=== PATIENT | male | born 1955 | race Caucasian/White ===

== ENCOUNTER 2016-06-22 08:00 | Outpatient (CLI) | payer MEDICARE ==
[2016-06-22 14:37] LABS: BASOPHILS % (AUTO) 0.4 %; EOSINOPHILS # (AUTO) 0.1 10^3/uL (0.0-0.7); EOSINOPHILS % (AUTO) 1.8 %; HCT - HEMATOCRIT 47.8 % (42.0-52.0); HGB - HEMOGLOBIN 16.3 g/dL (14.0-18.0); LYMPHOCYTES # (AUTO) 2.3 10^3/uL (1.5-3.5); LYMPHOCYTES % (AUTO) 39.2 %; MEAN CORPUSCULAR HEMOGLOBIN 31.1 pg (27.0-31.0); MEAN CORPUSCULAR HGB CONC 34.2 g/dL (32.0-36.0); MEAN CORPUSCULAR VOLUME 90.9 fL (80.0-94.0); MEAN PLATELET VOLUME 8.5 fL (7.4-11.4); MONOCYTES # (AUTO) 0.4 10^3/uL (0.0-1.0); NEUTROPHILS % (AUTO) 51.6 %; RED BLOOD COUNT 5.26 10^6/uL (4.70-6.10); RED CELL DISTRIBUTION WIDTH 13.3 % (12.0-15.0); UNCORRECTED WHITE BLOOD COUNT 5.8 x10^3/uL; WHITE BLOOD COUNT 5.8 x10^3/uL (4.8-10.8)
[2016-06-22 14:49] LABS: ALBUMIN/GLOBULIN RATIO 1.8 (1.0-2.2); BUN - BLOOD UREA NITROGEN 8 mg/dL (6-20); CALCIUM 9.4 mg/dL (8.5-10.3); CARBON DIOXIDE - CO2 29 mmol/L (21-32); CHLORIDE 101 mmol/L (101-111); CHOL/HDL RATIO 4.3 (<5.0); CHOLESTEROL 301 mg/dL; CREATININE 0.7 mg/dL (0.6-1.2); GFR - MDRD 114 (>89); GLUCOSE 94 mg/dL (70-100); HDL CHOLESTEROL 70 mg/dL; LDL/HDL RATIO 2.9 (<3.6); POTASSIUM 3.7 mmol/L (3.5-5.0); SODIUM 139 mmol/L (135-145); TOTAL PROTEIN 7.2 g/dL (6.7-8.2); TRIGLYCERIDES 153 mg/dL; VLDL CHOLESTEROL 31 mg/dL
[2016-06-26 18:16] LABS: TEST RESULT REPORT (())
== END 2016-06-22 08:01 | disposition home or self-care (01) ==
LOC: LAB.R 08:00
PROVIDERS: ATTEND Physician Assistant Medical
DX: L08.89 Other specified local infections of the skin and subcutaneous tissue (principal); R53.83 Other fatigue; E78.2 Mixed hyperlipidemia; Z12.5 Encounter for screening for malignant neoplasm of prostate; I10 Essential (primary) hypertension; Z79.899 Other long term (current) drug therapy
CPT/HCPCS: 80053; 80061; 81599; 84443; 85025; 86618; G0103; 84153

== ENCOUNTER 2017-03-12 03:45 | Emergency (ER) | payer MEDICARE ==
[2017-03-12] MEDS ORDERED: KETOROLAC 60 MG/2 ML VIAL IVP STA (03:49)
[2017-03-12] MEDS ORDERED: SODIUM CHLORIDE 0.9% 1,000 ML IV ONE ×2 (03:49→05:34)
[2017-03-12] MEDS ORDERED: LIDOCAINE-MPF 2% 10 ML in SODIUM CHLORIDE 0.9% 50 ML IV STA (04:26)
[2017-03-12] MEDS ORDERED: LIDOCAINE-MPF 2% 0 ML in SODIUM CHLORIDE 0.9% 50 ML IV STA ×2 (04:26→04:48)
--- NOTE | 2017-03-12 04:26 | CT Report ---
EXAM: CT ABDOMEN AND PELVIS (CT KUB) EXAM DATE: 03/12/2017 04:10 AM. CLINICAL HISTORY: Right flank pain. History of stones. COMPARISONS: 05/30/2014. TECHNIQUE: Routine axial helical CT imaging was performed through the abdomen and pelvis without IV c ontrast. Reconstructions: Coronal and sagittal. In accordance with CT protocol optimization, one or more of the following dose reduction techniques w ere utilized for this exam: automated exposure control, adjustment of mA and/or KV based on patient s ize, or use of iterative reconstructive technique. FINDINGS: Lung Bases: Bibasilar atelectasis. Heart size upper normal. Coronary artery calcifications. Right Kidney/Ureter: No stones are seen in the kidney. Moderately obstructing stone in the ureter jus t beyond the level of the iliac crest measuring 6 x 5 mm, series 3 image 99. Left Kidney/Ureter: No stones, hydronephrosis, or hydroureter. No perinephric fat stranding. Other Solid Organs: Noncontrast images of the solid organs are grossly unremarkable. Gallbladder/Bile Ducts: Unremarkable. Peritoneal Cavity: No free fluid, free air or emy adenopathy. Bowel is grossly unremarkable. Very l kirsten normal retrocecal appendix. Left inguinal hernia containing fat. Pelvic Organs: Large amount of streak artifact. Grossly unremarkable. Vasculature: Mild atherosclerosis. No aortic aneurysm. Other: Bilateral hip prostheses. Degenerative changes in the spine. IMPRESSION: 1. Moderately obstructing 6 x 5 mm stone in the right ureter just beyond the level of the iliac crest . 2. No other urolithiasis seen. [facility] Referring Provider Line: [phone] SITE ID: [id number]
--- NOTE | 2017-03-12 04:26 | CT Preliminary Report ---
Exam: CT ABDOMEN/PELVIS W/O IMPRESSION: 1. Moderately obstructing 6 x 5 mm stone in the right ureter just beyond the level of the iliac crest . 2. No other urolithiasis seen. [facility] SITE ID: [id number]
[2017-03-12] MEDS ORDERED: LIDOCAINE 2% 10 ML MDV ONE (04:59)
[2017-03-12] MEDS ORDERED: LIDOCAINE-MPF 2% 5 ML VIAL ONE (05:00)
[2017-03-12 05:53] LABS: BILIRUBIN,URINE NEGATIVE (NEGATIVE); GLUCOSE, URINE (UA) NEGATIVE (NEGATIVE); KETONES,URINE (UA) NEGATIVE (NEGATIVE); LEUKOCYTE ESTERASE, URINE NEGATIVE (NEGATIVE); NITRITE,URINE NEGATIVE (NEGATIVE); OCCULT BLOOD,URINE LARGE (NEGATIVE); PROTEIN,URINE NEGATIVE (NEGATIVE); UROBILINOGEN,URINE 0.2 (NORMAL) E.U./dL (NORMAL)
--- NOTE | 2017-03-12 05:57 | ED Physician Documentation ---
PD HPI MALE - Stated complaint Stated Complaint: RT FLANK PAIN - Chief complaint Chief Complaint: Back Pain - History obtained from History obtained from: Patient - History of Present Illness Timing - onset: Today Timing - details: Abrupt onset, Still present Similar symptoms before: Work up / diagnostics, Treatment Recently seen: Not recently seen - Additional information Additional information: Patient is a 61 year old male with a history of kidney stones who is presenting to the emergency department for right sided flank pain with radiation to his groin. Patient states that the pain woke him up from sleep this morning. Patient complains of nausea with the pain. Review of Systems Constitutional: denies: Fever, Chills Eyes: reports: Reviewed and negative Ears: reports: Reviewed and negative Nose: reports: Reviewed and negative Throat: reports: Reviewed and negative Cardiac: reports: Reviewed and negative Respiratory: denies: Cough, Wheezing GI: reports: Abdominal Pain, Nausea. denies: Vomiting, Constipation, Diarrhea : reports: Hesitancy. denies: Hematuria Musculoskeletal: reports: Back pain Neurologic: reports: Reviewed and negative Psychiatric: reports: Reviewed and negative Immunocompromised: denies: Immunocompromised PD PAST MEDICAL HISTORY - Past Medical History Past Medical History: Yes Cardiovascular: Hypertension, High cholesterol Respiratory: None, Sleep apnea Neuro: None Endocrine/Autoimmune: None GI: None : Benign prostate hypertrophy, Kidney stones HEENT: None Psych: None Musculoskeletal: Other Derm: None - Past Surgical History Past Surgical History: Yes Ortho: Hip replacement, ACL reconstruction, Other - Present Medications Home Medications: Ambulatory Orders Medication Instructions Recorded Confirmed Lisinopril 30 mg PO DAILY 10/20/12 07/06/14 Ibuprofen 800 mg PO Q8HR PRN 05/26/14 07/06/14 Tamsulosin [Flomax] 0.4 mg PO DAILY 07/02/14 07/06/14 Ketorolac [Toradol] 10 mg PO Q6H #10 tablet 03/12/17 Ondansetron Odt [Zofran] 4 mg TL Q6H PRN #14 tablet 03/12/17 Oxycodone HCl/Acetaminophen 1 - 2 each PO Q6H PRN #10 tablet 03/12/17 [Percocet 5-325 mg Tablet] Tamsulosin [Flomax] 0.4 mg PO DAILY #14 capsule 03/12/17 - Allergies Allergies/Adverse Reactions: Allergies Allergy/AdvReac Type Severity Reaction Status Date / Time No Known Drug Allergies Allergy Verified 06/29/13 07:58 - Social History Does the pt smoke?: No Smoking Status: Never smoker Does the pt drink ETOH?: No Does the pt have substance abuse?: No - Immunizations Immunizations are current?: Yes - POLST Patient has POLST: No PD ED PE NORMAL - Vitals Vital signs reviewed: Yes - General General: Alert and oriented X 3, Well developed/nourished - HEENT HEENT: Atraumatic, PERRL - Neck Neck: Supple, no meningeal sign - Cardiac Cardiac: RRR, No murmur - Respiratory Respiratory: No respiratory distress - Abdomen Abdomen: Soft - Derm Derm: Normal color, No rash - Extremities Extremities: No deformity, Normal ROM s pain, No calf tenderness / cord - Neuro Neuro: Alert and oriented X 3, No motor deficit, No sensory deficit, Normal speech - Psych Psych: Normal mood PD ED PE EXPANDED - General General: Alert, In Pain - HEENT HEENT: Dry mucous membranes Results - Vitals Vitals: Vital Signs - 24 hr 03/12/17 03/12/17 03/12/17 03:52 05:07 05:12 Temperature 36.0 C L Heart Rate 70 82 79 Respiratory 18 22 19 Rate Blood Pressure 157/81 H 184/91 H O2 Saturation 95 96 98 03/12/17 03/12/17 03/12/17 05:19 05:50 06:03 Temperature Heart Rate 83 79 76 Respiratory 18 19 18 Rate Blood Pressure 152/96 H 156/86 H 166/93 H O2 Saturation 96 96 95 Oxygen O2 Source Room air - Labs Labs: Laboratory Tests 03/12/17 05:45 Urine Color YELLOW Urine Clarity SL. CLOUDY Urine pH 7.0 Ur Specific [place] 1.020 Urine Protein NEGATIVE Urine Glucose (UA) NEGATIVE Urine Ketones NEGATIVE Urine Occult Blood LARGE H Urine Nitrite NEGATIVE Urine Bilirubin NEGATIVE Urine Urobilinogen 0.2 (NORMAL) Ur Leukocyte Esterase NEGATIVE Urine RBC TNTC H Urine WBC 4-5 Ur Squamous Epith Cells RARE Squamous Urine Bacteria Rare Ur Microscopic Review INDICATED Urine Culture Comments NOT INDICATED - Rads (name of study) ct abd pelvis Radiology: Final report received (mm by 6mm renal calculi with mild hydro) PD MEDICAL DECISION MAKING - ED course Complexity details: reviewed old records, reviewed results, re-evaluated patient , considered differential, d/w patient ED course: Patient was seen and examined at bedside. patient was treated with a fluid bolus, toradol and zofran. Imaging was ordered. When patient returned from imaging he was re-evaluated and was treated with lidocaine 20mg IV. Patient responded well to the therapy. patient was treated with a second fluid bolus. Urine was collected and showed no sign of infection. patient was given strict discharge and follow up instructions and was stable for discharge with outpatient follow up. Departure - Departure Disposition: 01 Home, Self Care Clinical Impression: Renal colic Condition: Good Instructions: ED Stone Renal W Colic Follow-Up: [facility] [Provider Group] - Tomorrow Prescriptions: Ketorolac [Toradol] 10 mg PO Q6H #10 tablet Ondansetron Odt [Zofran] 4 mg TL Q6H PRN #14 tablet PRN Reason: Nausea / Vomiting Oxycodone HCl/Acetaminophen [Percocet 5-325 mg Tablet] 1 - 2 each PO Q6H PRN # 10 tablet PRN Reason: pain Tamsulosin [Flomax] 0.4 mg PO DAILY #14 capsule Comments: Your symptoms today are being caused by a kidney stone. the stone should pass on its own but you should call [facility] to schedule a follow up appointment. You should make sure you stay well hydrated and take tylenol or ketorolac as needed for pain and percocet for breakthrough pain. You should return to the emergency department for fevers, uncontrolled vomiting, new worsening or uncontrollable symptoms Forms: Activity restrictions
[2017-03-12 06:02] LABS: BACTERIA,URINE Rare /HPF (None Seen); CLARITY,URINE SL. CLOUDY (CLEAR); RBC,URINE TNTC /HPF (0-5); SQUAMOUS EPITHELIAL CELL,UR RARE Squamous (<= Few)
[2017-03-12 06:04] VITALS: BP 166/93
[2017-03-12] MEDS ORDERED: oxyCODONE/ACET 5/325 Prepack 4 PO STA (06:19)
== END 2017-03-12 06:34 | disposition home or self-care (01) ==
LOC: ED 03:45
DX: N13.2 Hydronephrosis with renal and ureteral calculous obstruction (principal); I10 Essential (primary) hypertension; E78.5 Hyperlipidemia, unspecified; N40.0 Benign prostatic hyperplasia without lower urinary tract symptoms
CPT/HCPCS: 74176; 81001; 81003; 87086; 96361; 96374; 99284

== ENCOUNTER 2017-10-08 10:25 | Outpatient (CLI) | payer MEDICARE ==
[2017-10-08 15:10] LABS: BILIRUBIN,URINE NEGATIVE (NEGATIVE); GLUCOSE, URINE (UA) NEGATIVE (NEGATIVE); KETONES,URINE (UA) NEGATIVE (NEGATIVE); LEUKOCYTE ESTERASE, URINE NEGATIVE (NEGATIVE); NITRITE,URINE NEGATIVE (NEGATIVE); OCCULT BLOOD,URINE SMALL (NEGATIVE); PROTEIN,URINE NEGATIVE (NEGATIVE); UROBILINOGEN,URINE 0.2 (NORMAL) E.U./dL (NORMAL)
[2017-10-08 16:00] LABS: CLARITY,URINE CLEAR (CLEAR)
[2017-10-08 16:01] LABS: BACTERIA,URINE None Seen /HPF (None Seen); CRYSTALS,URINE 0-2 Calcium Oxalate /LPF; RBC,URINE None Seen /HPF (0-5); SQUAMOUS EPITHELIAL CELL,UR RARE Squamous (<= Few)
== END 2017-10-08 10:26 ==
LOC: LAB.R 10:25
PROVIDERS: ATTEND Physician Assistant Medical
DX: R31.9 Hematuria, unspecified (principal)
CPT/HCPCS: 81001; 87086

== ENCOUNTER 2018-12-04 08:25 | Outpatient (CLI) | payer MEDICARE ==
[2018-12-04 09:02] LABS: BASOPHILS % (AUTO) 0.5 %; EOSINOPHILS # (AUTO) 0.1 10^3/uL (0.0-0.7); EOSINOPHILS % (AUTO) 1.5 %; HGB - HEMOGLOBIN 16.1 g/dL (14.0-18.0); LYMPHOCYTES # (AUTO) 2.4 10^3/uL (1.5-3.5); LYMPHOCYTES % (AUTO) 36.3 %; MEAN CORPUSCULAR HEMOGLOBIN 32.5 pg (27.0-31.0); MEAN CORPUSCULAR HGB CONC 35.1 g/dL (32.0-36.0); MEAN CORPUSCULAR VOLUME 92.5 fL (80.0-94.0); MEAN PLATELET VOLUME 9.7 fL (7.4-11.4); MONOCYTES # (AUTO) 0.6 10^3/uL (0.0-1.0); NEUTROPHILS # (AUTO) 3.4 10^3/uL (1.5-6.6); NEUTROPHILS % (AUTO) 51.6 %; PLT - PLATELET COUNT 208 10^3/uL (130-450); RED BLOOD COUNT 4.96 10^6/uL (4.70-6.10); RED CELL DISTRIBUTION WIDTH 12.2 % (12.0-15.0); WHITE BLOOD COUNT 6.6 x10^3/uL (4.8-10.8)
[2018-12-04 09:09] LABS: ALBUMIN 4.3 g/dL (3.2-5.5); ALBUMIN/GLOBULIN RATIO 1.7 (1.0-2.2); ALKALINE PHOSPHATASE 48 IU/L (42-121); ALT ALANINE AMINOTRANSFERASE 26 IU/L (10-60); AST ASPARTATE AMINOTRANSFERASE 22 IU/L (10-42); BILIRUBIN,TOTAL 1.5 mg/dL (0.2-1.0); BUN - BLOOD UREA NITROGEN 17 mg/dL (6-20); CALCIUM 9.3 mg/dL (8.5-10.3); CARBON DIOXIDE - CO2 27 mmol/L (21-32); CHLORIDE 103 mmol/L (101-111); CHOL/HDL RATIO 3.9 (<5.0); CHOLESTEROL 251 mg/dL; CREATININE 0.8 mg/dL (0.6-1.2); GFR - MDRD 97 (>89); GLUCOSE 108 mg/dL (70-100); HDL CHOLESTEROL 65 mg/dL; LDL CHOLESTEROL,CALCULATED 167 mg/dL; LDL/HDL RATIO 2.6 (<3.6); SODIUM 138 mmol/L (135-145); TOTAL PROTEIN 6.9 g/dL (6.7-8.2); VLDL CHOLESTEROL 19 mg/dL
== END 2018-12-04 08:26 | disposition home or self-care (01) ==
LOC: LAB 08:25
PROVIDERS: ATTEND Nurse Practitioner
DX: Z00.00 Encounter for general adult medical examination without abnormal findings (principal); N23 Unspecified renal colic; E78.2 Mixed hyperlipidemia; I10 Essential (primary) hypertension
CPT/HCPCS: 36415; 80053; 80061; 83721; 84443; 85025

== ENCOUNTER 2019-08-24 10:50 | Outpatient (CLI) | payer MEDICARE | END 2019-08-24 23:59 | disposition home or self-care (01) | LOC: COV 10:50 | PROVIDERS: ATTEND Family Medicine | DX: R06.02 Shortness of breath (principal); M79.10 Myalgia, unspecified site; R53.83 Other fatigue; Z20.828 Contact with and (suspected) exposure to other viral communicable diseases ==

== ENCOUNTER 2019-12-18 12:20 | Outpatient (CLI) | payer MEDICARE ==
--- NOTE | 2019-12-18 15:41 | XRAY Report ---
PROCEDURE: Hips 2V BILAT INDICATIONS: HX OF HIP REPLACEMENT, BILATERAL TECHNIQUE: 2 views of the hip were acquired. COMPARISON: CT abdomen pelvis 05/26/2014 FINDINGS: Bones: No fractures or dislocations. No suspicious bony lesions. The visualized pelvic ring appear s intact. Bilateral hip arthroplasties are present. Hardware is intact without evidence of hardware fracture or periprosthetic loosening. Degenerative changes are present within the lower lumbar spine. Soft tissues: No suspicious soft tissue calcifications or masses. IMPRESSION: Bilateral hip arthroplasties as above. Reviewed by: Karena Colbert MD on 12/18/2019 3:39 PM PST Approved by: Karena Colbert MD on 12/18/2019 3:39 PM PST Station ID: [id number]
== END 2019-12-18 12:21 | disposition home or self-care (01) ==
LOC: DI 12:20
PROVIDERS: ATTEND Internal Medicine
DX: M25.551 Pain in right hip (principal); M25.552 Pain in left hip; Z96.643 Presence of artificial hip joint, bilateral
CPT/HCPCS: 73521

== ENCOUNTER 2019-12-29 16:48 | Outpatient (CLI) | payer MEDICARE ==
--- NOTE | 2019-12-29 18:06 | MRI Report ---
PROCEDURE: Lumbar Spine W/O INDICATIONS: LUMBAR BACK PAIN W/RADICULOPATHY, HX HIP REPLAC TECHNIQUE: Noncontrast sagittal T1 spin echo and T2 fast echo, sagittal STIR, axial T1 and T2 fast spin echo thr ough the lumbar spine. In cases with scoliosis, additional coronal T2 fast spin echo may be performe d. COMPARISON: None. FINDINGS: Image quality: Motion artifact is noted. Alignment and Curvature: There is normal bony alignment. Bone Marrow: Marrow is of normal overall signal. Scattered foci of T1-weighted hyperintensity and T 2-weighted hyperintensity are seen, without increased STIR signal. These foci are attributed to benig n vertebral body hemangiomas. No acute vertebral body compression fractures. Spinal Cord: Conus medullaris terminates at the L1 level. Visualized cord demonstrates normal signa l and size. Paraspinous Soft Tissues: No paravertebral masses. T12-L1: Normal in appearance. L1-L2: Mild loss of disc height and disc signal are seen. Bridging anterior osteophytes are see n. This level is not included within the axial images. However, there is believed to be moderate face t hypertrophy. There is mild to moderate bilateral neuroforaminal narrowing seen. Mild central canal narrowing is seen. L2-L3: Moderate loss of disc height and signal are seen. Moderate to prominent disc bulge is seen. At least moderate facet hypertrophy can be seen. There is mild to moderate right-sided and moderate left-sided neuroforaminal narrowing seen. Moderate to severe central canal narrowing is seen, as on s eries 701 image 28. L3-L4: Moderate loss of disc height and signal are seen. Moderate to prominent disc bulge is seen a t this level. There is a central disc extrusion seen. Bridging anterior osteophytes are seen. At [address] st moderate facet hypertrophy can be seen. There is moderate left-sided and moderate to severe right- sided neuroforaminal narrowing seen. Compression is seen upon the exiting nerve roots. Severe centra l canal narrowing is seen, as on series 701 image 22. L4-L5: Moderate loss of disc height and signal are seen. Moderate disc bulge is seen. Bridging ante rior osteophytes are seen. Mild facet hypertrophy is seen. There is at least moderate right-sided n euroforaminal narrowing seen, with a degree of compression upon the exiting right L4 nerve root. Mode rate left-sided neuroforaminal narrowing can be seen. Mild central canal narrowing is seen. L5-S1: The disc height is well-preserved. There is loss of disc signal seen. Mild to moderate disc bulge is seen. Bridging anterior osteophytes are seen. Moderate to prominent facet hypertrophy is see n. Moderate to severe bilateral neuroforaminal narrowing can be seen. Compression is seen upon the ex iting nerve roots. Mild central canal narrowing is seen. IMPRESSION: At L3-L4, there is a central disc extrusion, with severe central canal narrowing. There is moderate left-sided and moderate to severe right-sided neuroforaminal narrowing at this level. Exi ting nerve root compression can be seen. At L5-S1, moderate to severe bilateral neuroforaminal narrowing can be seen, with associated exiting nerve root compression. Milder degenerative changes are seen elsewhere. Reviewed by: Raghav Ceja MD on 12/29/2019 5:05 PM [place] Approved by: Raghav Ceja MD on 12/29/2019 5:05 PM [facility] Station ID: [id number]
== END 2019-12-29 16:49 | disposition home or self-care (01) ==
LOC: DI 16:48
PROVIDERS: ATTEND Internal Medicine
DX: M51.36 Other intervertebral disc degeneration, lumbar region (principal); M48.061 Spinal stenosis, lumbar region without neurogenic claudication; M47.816 Spondylosis without myelopathy or radiculopathy, lumbar region; M51.26 Other intervertebral disc displacement, lumbar region; M51.37 Other intervertebral disc degeneration, lumbosacral region; M48.07 Spinal stenosis, lumbosacral region
CPT/HCPCS: 72148

== ENCOUNTER 2020-10-31 18:50 | Emergency (ER) | payer MEDICARE ==
--- NOTE | 2020-10-31 19:25 | XRAY Report ---
PROCEDURE: Chest 2 View X-Ray INDICATIONS: cough TECHNIQUE: 2 view(s) of the chest. COMPARISON: Chest x-ray 08/26/2014 FINDINGS: Surgical changes and devices: None. Lungs and pleura: No pleural effusions or pneumothorax. Lungs are clear. Mediastinum: Mediastinal contours are normal. Heart size is mildly prominent. Bones and chest wall: No suspicious bony abnormalities. Soft tissues appear unremarkable. IMPRESSION: No acute pulmonary process. Reviewed by: Karena Colbert MD on 10/31/2020 7:24 PM PDT Approved by: Karena Colbert MD on 10/31/2020 7:24 PM PDT Station ID: [id number]
[2020-10-31] MEDS ORDERED: AZITHROMYCIN 250 MG TABLET PO STA (21:41)
--- NOTE | 2020-10-31 21:44 | ED Physician Documentation ---
History of Present Illness - Stated complaint Stated Complaint: COUGH/SOA - Chief complaint Chief Complaint: Resp - History obtained from History obtained from: Patient - History of Present Illness Timing: How many days ago (3) Pain level max: 0 Pain level now: 0 - Additonal information Additional information: Patient is a 65-year-old male who presents to the emergency department with coughing for the past 3 days. States has a history of recurrent pneumonia after several lung infections earlier in his life. No fevers. No chills. Cough is productive of yellow sputum. Nothing makes it better or worse. Review of Systems Constitutional: denies: Fever, Chills Nose: denies: Rhinorrhea / runny nose, Congestion Cardiac: denies: Chest pain / pressure Respiratory: reports: Cough. denies: Hemoptysis, Wheezing GI: denies: Nausea, Vomiting Skin: denies: Rash Neurologic: denies: Headache PD PAST MEDICAL HISTORY - Past Medical History Past Medical History: Yes Cardiovascular: Hypertension, High cholesterol Respiratory: None, Sleep apnea Endocrine/Autoimmune: None GI: None : Benign prostate hypertrophy, Kidney stones HEENT: None Psych: None Musculoskeletal: Other Derm: None - Past Surgical History Past Surgical History: Yes Ortho: Hip replacement, ACL reconstruction, Other - Present Medications Home Medications: Ambulatory Orders Medication Instructions Recorded Confirmed Ibuprofen 800 mg PO Q8HR PRN 05/26/14 07/06/14 Azithromycin [Zithromax] 250 mg PO DAILY #4 tablet 10/31/20 Losartan Potassium [Cozaar] 100 mg PO DAILY 10/31/20 10/31/20 hydroCHLOROthiazide [Hydrodiuril] 25 mg PO DAILY 10/31/20 10/31/20 - Allergies Allergies/Adverse Reactions: Allergies Allergy/AdvReac Type Severity Reaction Status Date / Time No Known Drug Allergies Allergy Verified 06/29/13 07:58 - Social History Does the pt smoke?: No Smoking Status: Never smoker Does the pt drink ETOH?: No Does the pt have substance abuse?: No - Immunizations Immunizations are current?: Yes - POLST Patient has POLST: No PD ED PE NORMAL - Vitals Vital signs reviewed: Yes - General General: Alert and oriented X 3, No acute distress - HEENT HEENT: Moist mucous membranes - Neck Neck: Supple, no meningeal sign - Cardiac Cardiac: RRR, Strong equal pulses - Respiratory Respiratory: No respiratory distress, Clear bilaterally - Abdomen Abdomen: Soft, Non tender, Non distended - Derm Derm: Warm and dry - Extremities Extremities: No edema - Neuro Neuro: Alert and oriented X 3 Results - Vitals Vitals: Oxygen O2 Source Room air - Labs Labs: Laboratory Tests 10/31/20 20:31 Coronavirus (PCR) NEGATIVE - Rads (name of study) cxr Radiology: Final report received, EMP read contemporaneously, See rad report (No acute abnormality) PD MEDICAL DECISION MAKING - ED course Complexity details: considered differential, d/w patient ED course: 65-year-old male presents to the emergency department with concerns for possible pneumonia. Has a history of recurrent lung infections and states that his doctor recommends he be treated early with antibiotics. Even though the x-ray is clear today, we will place him on antibiotics given his history and have him follow-up with his doctor for further care. Patient counseled regarding signs and symptoms for which I believe and urgent re-evaluation would be necessary. Patient with good understanding of and agreement to plan and is comfortable going home at this time This document was made in part using voice recognition software. While efforts are made to proofread this document, sound alike and grammatical errors may occur. Departure - Departure Disposition: 01 Home, Self Care Clinical Impression: Pneumonia Qualifiers: Pneumonia type: due to unspecified organism Laterality: unspecified laterality Lung location: unspecified part of lung Qualified Code(s): J18.9 - Pneumonia, unspecified organism Condition: Good Instructions: ED Pneumonia Adult Follow-Up: Jesus Rabago MD [Primary Care Provider] - Within 1 week Prescriptions: Azithromycin [Zithromax] 250 mg PO DAILY #4 tablet Comments: Your prescription was sent to [facility] in [place]. Take all antibiotics until gone. Return if you worsen. You have a Covid test pending. You need to self quarantine until the result is done and negative. The results should be done in 24-48 hours. We will call with a positive result, the fastest way to get a negative result for confirmation though is to go to the hospital website at [email or web address], click on the my [facility] tab and sign up for the patient portal. If any of your friends and/or family need to be tested, they can call the hospital at [phone] for an appointment to have their Covid test. Discharge Date/Time: 10/31/20 21:50
[2020-10-31 21:52] VITALS: BP 155/72
== END 2020-10-31 21:50 | disposition home or self-care (01) ==
LOC: ED 18:50
DX: J18.9 Pneumonia, unspecified organism (principal); I10 Essential (primary) hypertension
CPT/HCPCS: 71046; 99283; 99284; A9270; U0004

== ENCOUNTER 2021-01-02 08:19 | Outpatient (CLI) | payer MEDICARE ==
[2021-01-02 08:36] LABS: BASOPHILS % (AUTO) 0.4 %; EOSINOPHILS # (AUTO) 0.1 10^3/uL (0.0-0.7); EOSINOPHILS % (AUTO) 1.1 %; HCT - HEMATOCRIT 47.4 % (42.0-52.0); HGB - HEMOGLOBIN 15.8 g/dL (14.0-18.0); LYMPHOCYTES # (AUTO) 2.9 10^3/uL (1.5-3.5); LYMPHOCYTES % (AUTO) 39.4 %; MEAN CORPUSCULAR HEMOGLOBIN 31.6 pg (27.0-31.0); MEAN CORPUSCULAR HGB CONC 33.3 g/dL (32.0-36.0); MEAN CORPUSCULAR VOLUME 94.8 fL (80.0-94.0); MEAN PLATELET VOLUME 9.4 fL (7.4-11.4); MONOCYTES # (AUTO) 0.7 10^3/uL (0.0-1.0); MONOCYTES % (AUTO) 8.7 %; NEUTROPHILS # (AUTO) 3.7 10^3/uL (1.5-6.6); NEUTROPHILS % (AUTO) 49.7 %; PLT - PLATELET COUNT 205 10^3/uL (130-450); RED CELL DISTRIBUTION WIDTH 12.6 % (12.0-15.0); WHITE BLOOD COUNT 7.5 x10^3/uL (4.8-10.8)
[2021-01-02 08:49] LABS: CREATININE,URINE 336.4 mg/dL; MICROALBUM/CREATININE RATIO,UR 3.6 ug/mg (<30.0); MICROALBUMIN,URINE 1.2 mg/dL (0-300.0)
[2021-01-02 08:55] LABS: ALBUMIN 4.2 g/dL (3.2-5.5); ALBUMIN/GLOBULIN RATIO 1.7 (1.0-2.2); ALKALINE PHOSPHATASE 50 IU/L (42-121); ALT ALANINE AMINOTRANSFERASE 34 IU/L (10-60); AST ASPARTATE AMINOTRANSFERASE 26 IU/L (10-42); BILIRUBIN,TOTAL 0.8 mg/dL (0.2-1.0); BUN - BLOOD UREA NITROGEN 13 mg/dL (6-20); CALCIUM 9.2 mg/dL (8.5-10.3); CARBON DIOXIDE - CO2 31 mmol/L (21-32); CHLORIDE 98 mmol/L (101-111); CHOL/HDL RATIO 3.2 (<5.0); CHOLESTEROL 267 mg/dL; CREATININE 0.9 mg/dL (0.6-1.2); GFR - MDRD 84 (>89); GLUCOSE 100 mg/dL (70-100); HDL CHOLESTEROL 83 mg/dL; LDL CHOLESTEROL,CALCULATED 168 mg/dL; SODIUM 138 mmol/L (135-145); TOTAL PROTEIN 6.7 g/dL (6.7-8.2); TRIGLYCERIDES 82 mg/dL; VLDL CHOLESTEROL 16 mg/dL
[2021-01-02 09:05] LABS: THYROID STIMULATING HORMONE 0.82 uIU/mL (0.34-5.60)
[2021-01-02 10:42] LABS: ESTIMATED AVERAGE GLUCOSE 103 mg/dL (70-100); HEMOGLOBIN A1c% 5.2 % (4.27-6.07)
== END 2021-01-02 08:20 | disposition home or self-care (01) ==
LOC: LAB 08:19
PROVIDERS: ATTEND Internal Medicine
DX: I10 Essential (primary) hypertension (principal); E78.2 Mixed hyperlipidemia; R73.01 Impaired fasting glucose; R97.20 Elevated prostate specific antigen [PSA]
CPT/HCPCS: 36415; 80053; 80061; 82043; 82570; 83036; 83721; 84153; 84443; 85025

== ENCOUNTER 2022-01-11 08:40 | Day surgery (SDC) | payer MEDICARE ==
[~2022-01-11 08:40] MED LIST: CYCLOPENTOLATE 1% OPHTH DROPS 2 ML ONE; KETOROLAC 0.45% OPHTH DROPS ONE; PHENYLEPHRINE 2.5% OPHTH 2 ML DROPS ONE; PROPARACAINE 0.5% OPHTH DROPS 15 ML ONE
[2022-01-11] MEDS ORDERED: LACTATED RINGERS 1,000 ML IV ONE (09:23)
[2022-01-11] MEDS ORDERED: TRIAMCIN/MOXIFLOX OPHTHALMIC 0.6 ML VIAL IO ONE ×2 (11:23→11:43)
[2022-01-11] MEDS ORDERED: TIMOLOL 0.5% OPHTH DROPS ONE (11:24)
[2022-01-11] MEDS ORDERED: VANCOMYCIN OPHTH (TOPICAL) 10 MG/ML SYRINGE ONE (11:24)
[2022-01-11] MEDS ORDERED: BRIMONIDINE 0.2% OPHTH DROPS 5 ML ONE (11:24)
[2022-01-11] MEDS ORDERED: BSS/LIDOCAINE/EPINEPHRINE 1 ML VIAL ONE (11:24)
[2022-01-11] MEDS ORDERED: EPINEPHrine 1 MG/ML AMP ONE (11:24)
--- NOTE | 2022-01-11 11:24 | ANESTHESIA ---
Pre-Anesthesia VS, & Labs - Diagnosis R senile combined cataract - Procedure R extraction cataract w/IOL Vital Signs: Temp Pulse Resp BP Pulse Ox O2 Flow Rate 36.3 C L 85 14 154/76 H 98 01/11/22 09:33 01/11/22 09:33 01/11/22 09:33 01/11/22 09:33 01/11/22 09:33 Height: 5 ft 9 in Weight (kg): 110 kg Body Mass Index: 35.8 BMI Classification: Obese - NPO >8 hours - Lab Results Lab results reviewed: Yes Home Medications and Allergies Home Medications: Ambulatory Orders Amitriptyline [Elavil] 10 mg PO HS 01/10/22 Simvastatin [Zocor] 20 mg PO DAILY 01/10/22 Losartan Potassium [Cozaar] 100 mg PO DAILY 10/31/20 hydroCHLOROthiazide [Hydrodiuril] 25 mg PO DAILY 10/31/20 Amitriptyline [Elavil] 10 mg PO HS 01/10/22 Simvastatin [Zocor] 20 mg PO DAILY 01/10/22 Allergies/Adverse Reactions: Allergies Allergy/AdvReac Type Severity Reaction Status Date / Time No Known Drug Allergies Allergy Verified 01/11/22 09:43 Anes History & Medical History - Anesthetic History Anesthesia Complications: reports: No previous complications Family history of Anesthesia Complications: Denies Family history of Malignant Hyperthermia: Denies - Medical History Cardiovascular: reports: Hypertension, High cholesterol Pulmonary: reports: None, Sleep apnea Gastrointestinal: reports: None Urinary: reports: Benign prostate hypertrophy, Kidney stones Musculoskeletal: reports: Other Endocrine/Autoimmune: reports: None Blood Disorders: reports: None Skin: reports: None Smoking Status: Never smoker - Surgical History Orthopedic: reports: Hip replacement, ACL reconstruction, Other Exam General: Alert, Oriented x3, Cooperative Dental: WNL Plan Anesthesia Type: MAC Consent for Procedure(s) Verified and Reviewed: Yes Code Status: Attempt Resuscitation ASA classification: 2-Mild systemic disease Is this case an emergency?: No
[2022-01-11] MEDS ORDERED: MIDAZOLAM 2 MG/2 ML VIAL ONE (11:26)
[2022-01-11] MEDS ORDERED: BSS/LIDOCAINE/EPINEPHRINE 1 ML SYRINGE IO ONE (11:43)
[2022-01-11] MEDS ORDERED: BRIMONIDINE 0.2% OPHTH DROPS 5 ML OPTH ONE (11:43)
[2022-01-11] MEDS ORDERED: EPINEPHrine 1 MG/ML AMP IR ONE (11:43)
[2022-01-11] MEDS ORDERED: PROPARACAINE 0.5% OPHTH DROPS 15 ML EACHEYE ONE (11:43)
[2022-01-11] MEDS ORDERED: TIMOLOL 0.5% OPHTH DROPS OPTH ONE (11:43)
[2022-01-11] MEDS ORDERED: VANCOMYCIN OPHTH (TOPICAL) 10 MG/ML SYRINGE TOP ONE (11:44)
[2022-01-11] MEDS ORDERED: fentaNYL 100 MCG/2 ML VIAL ONE (11:47)
[2022-01-11] MEDS ORDERED: LACTATED RINGERS 950 ML IV ONE (12:00)
[2022-01-11 12:29] VITALS: BP 130/67
--- NOTE | 2022-01-11 12:35 | OPERATIVE REPORT ---
Operative Report - Procedure Note Complications: Date of Surgery: 01/11/22 Preop Dx: Visually significant cataract right eye. This was the first cataract surgery. Postop Dx: Same Procedure: Phacoemulsification with posterior chamber intraocular lens implant right eye Surgeon: Dr. Rickey Morales Anesthesia: Monitored anesthesia care Complications: None Operative Indications: This is a 66-year-old M with progressive vision loss in the right eye due to 1-2+ nuclear sclerotic and 2-3+ cortical cataract. Best corrected visual acuity was 20/40 with glare to 20/40 vision in the right eye. Indications for surgery were: - Overall decrease in vision - Difficulty seeing words on a computer screen - Difficulty reading - Difficulty seeing words, closed captions, or game scores on TV - Difficulty seeing street signs - Difficulty driving in low light or at night - Difficulty driving at night because of headlights from other vehicles - Difficulty with glare or bright lights in any situation The patient was consented at length concerning the risks and benefits of cataract surgery after which the patient expressed a desire to proceed with surgery. Operative Procedure: The patient was taken into OR#3 and placed under monitored anesthesia care. A surgical time-out was conducted confirming correct patient, correct procedure, and correct surgical site. The patient was given topical anesthesia and then prepped and draped in the usual sterile fashion. The eye was entered at the 6 and 3 oclock positions. Intracameral Shugarcaine was injected into the anterior chamber followed by a dispersive viscoelastic. A continuous-tear curvilinear capsulorhexis was performed. The nucleus was hydrodissected and phacoemulsified. The cortex was evacuated using automated infusion and aspiration. A cohesive viscoelastic was injected into the capsular bag and a 19.5 diopter intraocular lens was inserted into the bag. Infusion and aspiration were used to evacuate the viscoelastic materials from the eye. The wounds were hydrated and the eye inflated to physiologic pressure using balanced salt solution. Approximately 0.25ml of a mixture of triamcinolone and moxifloxacin was injected trans-sclerally into the vitreous in the inferotemporal quadrant using a 30 gauge cannula. An additional 0.55ml of a mixture of triamcinolone and moxifloxacin was injected subconjunctivally in the superior quadrant for infection and inflammation prophylaxis. Wound integrity was checked with Weck-Shey sponges. The patient was taken from the operating room in good condition and given post-op instructions.
--- NOTE | 2022-01-11 13:42 | ANESTHESIA POST OP EVALUATION ---
Anesthesia Post Eval - Post Anesthesia Eval Vitals: Last Vital Signs Temp 36.6 C 01/11/22 12:28 Pulse 84 01/11/22 12:28 Resp 12 01/11/22 12:28 BP 130/67 01/11/22 12:28 Pulse Ox 98 01/11/22 12:28 O2 Flow Rate CV Function Including HR & BP: Stable Pain Control: Satisfactory Nausea & Vomiting: Negative Mental Status: Baseline Respiratory Status: Airway Patent Hydration Status: Satisfactory Anesthesia Complications: None
== END 2022-01-11 08:41 | disposition home or self-care (01) ==
LOC: SDS 08:40
PROVIDERS: ATTEND Ophthalmology
DX: H25.811 Combined forms of age-related cataract, right eye (principal); N40.0 Benign prostatic hyperplasia without lower urinary tract symptoms; E66.9 Obesity, unspecified; Z68.35 Body mass index [BMI] 35.0-35.9, adult
CPT/HCPCS: 66984; A9270; J3490; J7120

== ENCOUNTER 2022-02-22 07:09 | Day surgery (SDC) | payer MEDICARE ==
--- NOTE | 2022-02-22 06:57 | ANESTHESIA ---
Pre-Anesthesia VS, & Labs - Diagnosis L senile combined cataract - Procedure L extarction cataract wIOL Height: 5 ft 9 in - NPO >8 hours - Lab Results Lab results reviewed: Yes Home Medications and Allergies Losartan Potassium [Cozaar] 100 mg PO DAILY 10/31/20 hydroCHLOROthiazide [Hydrodiuril] 25 mg PO DAILY 10/31/20 Amitriptyline [Elavil] 10 mg PO HS 01/10/22 Simvastatin [Zocor] 20 mg PO DAILY 01/10/22 Allergies/Adverse Reactions: Allergies Allergy/AdvReac Type Severity Reaction Status Date / Time No Known Drug Allergies Allergy Verified 02/22/22 07:38 Anes History & Medical History - Anesthetic History Anesthesia Complications: reports: No previous complications Family history of Anesthesia Complications: Denies Family history of Malignant Hyperthermia: Denies - Medical History Cardiovascular: reports: Hypertension, High cholesterol Pulmonary: reports: None, Sleep apnea Gastrointestinal: reports: None Urinary: reports: Benign prostate hypertrophy, Kidney stones Musculoskeletal: reports: Other Endocrine/Autoimmune: reports: None Blood Disorders: reports: None Skin: reports: None Smoking Status: Never smoker - Surgical History Eyes Ears Nose Throat (EENT): reports: Cataracts Orthopedic: reports: Hip replacement, ACL reconstruction, Other Exam General: Alert, Oriented x3, Cooperative Dental: WNL Mouth Openin Fingerbreadth Neck Mobility: Normal Mallampati classification: II Thyromental Distance: 4-6 cm Respiratory: Lungs clear, Normal breath sounds, No respiratory distress Cardiovascular: Regular rate Neurological: Normal speech Mental/Cognitive Status: Alert/Oriented X3, Normal for patient Cognitive Status: Within normal limits Plan Anesthesia Type: MAC Consent for Procedure(s) Verified and Reviewed: Yes Code Status: Attempt Resuscitation ASA classification: 2-Mild systemic disease Is this case an emergency?: No
[2022-02-22] MEDS ORDERED: LACTATED RINGERS 1,000 ML IV ONE ×2 (07:29→09:23)
[2022-02-22] MEDS ORDERED: fentaNYL 100 MCG/2 ML VIAL ONE (08:44)
[2022-02-22] MEDS ORDERED: MIDAZOLAM 2 MG/2 ML VIAL ONE (08:44)
[2022-02-22] MEDS ORDERED: EPINEPHrine 1 MG/ML AMP IR ONE (09:10)
[2022-02-22] MEDS ORDERED: BRIMONIDINE 0.2% OPHTH DROPS 5 ML OPTH ONE (09:10)
[2022-02-22] MEDS ORDERED: BSS/LIDOCAINE/EPINEPHRINE 1 ML SYRINGE IO ONE (09:11)
[2022-02-22] MEDS ORDERED: TRIAMCIN/MOXIFLOX OPHTHALMIC 0.6 ML VIAL IO ONE ×3 (09:11→10:38)
[2022-02-22] MEDS ORDERED: TIMOLOL 0.5% OPHTH DROPS OPTH ONE (09:11)
[2022-02-22] MEDS ORDERED: PROPARACAINE 0.5% OPHTH DROPS 15 ML EACHEYE ONE (09:11)
[2022-02-22] MEDS ORDERED: VANCOMYCIN OPHTH (TOPICAL) 10 MG/ML SYRINGE TOP ONE (09:11)
--- NOTE | 2022-02-22 09:28 | OPERATIVE REPORT ---
Operative Report - Other Other Information/Narrative: Date of Surgery: 02/22/22 Preop Dx: Visually significant cataract left eye. Cataract surgery was performed in the right eye on . Postop Dx: Same Procedure: Phacoemulsification with posterior chamber intraocular lens implant left eye Surgeon: Dr. Rickey Morales Anesthesia: Monitored anesthesia care Complications: None Operative Indications: This is a 66-year-old M with progressive vision loss in the left eye due to 1-2+ nuclear sclerotic and 3+ cortical cataract. Best corrected visual acuity was 20/20 with glare to 20/40 vision in the left eye. Indications for surgery were: - Overall decrease in vision - Difficulty seeing words on a computer screen - Difficulty reading - Difficulty seeing words, closed captions, or game scores on TV - Difficulty seeing street signs - Difficulty driving in low light or at night - Difficulty driving at night because of headlights from other vehicles - Difficulty with glare or bright lights in any situation - Difficulty tracking a golf ball The patient was consented at length concerning the risks and benefits of catar act surgery after which the patient expressed a desire to proceed with surgery. Operative Procedure: The patient was taken into OR#3 and placed under monitored anesthesia care. A surgical time-out was conducted confirming correct patient, correct procedure, and correct surgical site. The patient was given topical anesthesia and then prepped and draped in the usual sterile fashion. The eye was entered at the 6 and 3 oclock positions. Intracameral Shugarcaine was injected into the anterior chamber followed by a dispersive viscoelastic. A continuous-tear curvilinear capsulorhexis was performed. The nucleus was hydrodissected and phacoemulsified. The cortex was evacuated using automated infusion and aspiration. A cohesive viscoelastic was injected into the capsular bag and a 19.5 diopter intraocular lens was inserted into the bag. Infusion and aspiration were used to evacuate the viscoelastic materials from the eye. The wounds were hydrated and the eye inflated to physiologic pressure using balanced salt solution. Approximately 0.25ml of a mixture of triamcinolone and moxifloxacin was injected trans-sclerally into the vitreous in the inferotemporal quadrant using a 30 gauge cannula. An additional 0.55ml of a mixture of triamcinolone and moxifloxacinwas injected subconjunctivally in the superior quadrant for infection and inflammation prophylaxis. Wound integrity was checked with Weck-Shey sponges. The patient was taken from the operating room in good condition and given post-op instructions.
[2022-02-22 09:46] VITALS: BP 139/73
--- NOTE | 2022-02-22 10:11 | ANESTHESIA POST OP EVALUATION ---
Anesthesia Post Eval - Post Anesthesia Eval Vitals: Last Vital Signs Temp 36.4 C L 02/22/22 09:40 Pulse 82 02/22/22 09:40 Resp 16 02/22/22 09:40 BP 139/73 H 02/22/22 09:40 Pulse Ox 94 02/22/22 09:40 O2 Flow Rate 0 02/22/22 07:29 CV Function Including HR & BP: Stable Pain Control: Satisfactory Nausea & Vomiting: Negative Mental Status: Baseline Respiratory Status: Airway Patent Hydration Status: Satisfactory Anesthesia Complications: None
[2022-02-22] MEDS ORDERED: BRIMONIDINE 0.2% OPHTH DROPS 5 ML ONE (10:28)
[2022-02-22] MEDS ORDERED: EPINEPHrine 1 MG/ML AMP ONE (10:28)
[2022-02-22] MEDS ORDERED: timoloL maleate 0.5% OPHTH DROPS (10ML) ONE (10:28)
[2022-02-22] MEDS ORDERED: BSS/LIDOCAINE/EPINEPHRINE 1 ML VIAL ONE (10:29)
[2022-02-22] MEDS ORDERED: VANCOMYCIN OPHTH (TOPICAL) 10 MG/ML SYRINGE ONE (10:29)
== END 2022-02-22 07:10 | disposition home or self-care (01) ==
LOC: SDS 07:09
PROVIDERS: ATTEND Ophthalmology
DX: H25.812 Combined forms of age-related cataract, left eye (principal); G47.30 Sleep apnea, unspecified; N40.0 Benign prostatic hyperplasia without lower urinary tract symptoms; Z98.41 Cataract extraction status, right eye
CPT/HCPCS: 66984; A9270; J3490; J7120

== ENCOUNTER 2023-01-04 09:09 | Outpatient (CLI) | payer MEDICARE ==
[2023-01-04 09:28] LABS: BASOPHILS % (AUTO) 0.5 %; EOSINOPHILS # (AUTO) 0.1 10^3/uL (0.0-0.7); EOSINOPHILS % (AUTO) 1.2 %; HCT - HEMATOCRIT 47.7 % (42.0-52.0); HGB - HEMOGLOBIN 15.7 g/dL (14.0-18.0); LYMPHOCYTES # (AUTO) 2.7 10^3/uL (1.5-3.5); LYMPHOCYTES % (AUTO) 40.5 %; MEAN CORPUSCULAR HEMOGLOBIN 30.6 pg (27.0-31.0); MEAN CORPUSCULAR HGB CONC 32.9 g/dL (32.0-36.0); MEAN PLATELET VOLUME 9.2 fL (7.4-11.4); MONOCYTES # (AUTO) 0.7 10^3/uL (0.0-1.0); MONOCYTES % (AUTO) 10.6 %; NEUTROPHILS # (AUTO) 3.1 10^3/uL (1.5-6.6); NEUTROPHILS % (AUTO) 46.7 %; PLT - PLATELET COUNT 207 10^3/uL (130-450); RED BLOOD COUNT 5.13 10^6/uL (4.70-6.10); RED CELL DISTRIBUTION WIDTH 12.5 % (12.0-15.0); WHITE BLOOD COUNT 6.6 x10^3/uL (4.8-10.8)
[2023-01-04 09:42] LABS: ALBUMIN 4.4 g/dL (3.2-5.5); ALBUMIN/GLOBULIN RATIO 2.6 (1.0-2.2); ALKALINE PHOSPHATASE 52 IU/L (42-121); ALT ALANINE AMINOTRANSFERASE 37 IU/L (10-60); AST ASPARTATE AMINOTRANSFERASE 23 IU/L (10-42); BILIRUBIN,TOTAL 1.1 mg/dL (0.2-1.0); BUN - BLOOD UREA NITROGEN 12 mg/dL (6-20); CALCIUM 9.8 mg/dL (8.5-10.3); CARBON DIOXIDE - CO2 31 mmol/L (21-32); CHLORIDE 100 mmol/L (101-111); CHOLESTEROL 172 mg/dL; CREATININE 0.9 mg/dL (0.6-1.3); GFR - MDRD 84 (>89); GLUCOSE 115 mg/dL (74-104); HDL CHOLESTEROL 58 mg/dL; LDL CHOLESTEROL,CALCULATED 97 mg/dL; LDL/HDL RATIO 1.7 (<3.6); POTASSIUM 3.7 mmol/L (3.5-4.5); SODIUM 137 mmol/L (135-145); TOTAL PROTEIN 6.1 g/dL (6.4-8.9); TRIGLYCERIDES 84 mg/dL (48-352); VLDL CHOLESTEROL 17 mg/dL
[2023-01-04 09:58] LABS: THYROID STIMULATING HORMONE 0.85 uIU/mL (0.34-5.60)
== END 2023-01-04 09:10 | disposition home or self-care (01) ==
LOC: LAB 09:09
PROVIDERS: ATTEND Internal Medicine
DX: I10 Essential (primary) hypertension (principal); E78.2 Mixed hyperlipidemia; R97.20 Elevated prostate specific antigen [PSA]; F32.A Depression, unspecified
CPT/HCPCS: 36415; 80053; 80061; 83721; 84153; 84443; 85025

== ENCOUNTER 2023-06-17 07:26 | Outpatient (CLI) | payer MEDICARE ==
[2023-06-17 08:06] LABS: CALCIUM 9.4 mg/dL (8.5-10.3); CREATININE 0.8 mg/dL (0.6-1.3); POTASSIUM 4.1 mmol/L (3.5-4.5)
[2023-06-17 09:43] LABS: ESTIMATED AVERAGE GLUCOSE 123 mg/dL (70-100); HEMOGLOBIN A1c% 5.9 % (4.27-6.07)
== END 2023-06-17 07:27 | disposition home or self-care (01) ==
LOC: LAB 07:26
PROVIDERS: ATTEND Internal Medicine
DX: I10 Essential (primary) hypertension (principal); R73.01 Impaired fasting glucose; R97.20 Elevated prostate specific antigen [PSA]
CPT/HCPCS: 36415; 80048; 83036; 84153; 84154

== ENCOUNTER 2023-08-08 11:01 | Outpatient (CLI) | payer MEDICARE ==
--- NOTE | 2023-08-09 00:15 | XRAY Report ---
PROCEDURE: Hip w/Pelvis 2-3V RT INDICATIONS: HX OF NBILATERAL HIP REPLACEMENT TECHNIQUE: 4 views of the hip were acquired. COMPARISON: Hip radiographs 12/18/2019 FINDINGS: Bones: No fractures or dislocations. No suspicious bony lesions. Bilateral hip arthroplasty with prosthetic elements in appropriate position. No evidence of hardware complication. Lower lumbar spine degenerative changes. Soft tissues: No suspicious soft tissue calcifications or masses. IMPRESSION: No acute bony abnormality. Status post bilateral hip arthroplasty without evidence of hardware complication. Reviewed by: Urvashi Gama MD, PhD on 08/08/2023 11:14 PM ESTEPHANIE Approved by: Urvashi Gama MD, PhD on 08/08/2023 11:14 PM ESTEPHANIE Station ID: [id number]
== END 2023-08-08 11:02 | disposition home or self-care (01) ==
LOC: DI 11:01
PROVIDERS: ATTEND Internal Medicine
DX: M25.551 Pain in right hip (principal); Z96.643 Presence of artificial hip joint, bilateral